=== PATIENT | male | born 1975 | race Caucasian/White ===

== ENCOUNTER 2022-03-12 12:56 | Emergency (ER) | payer BC, SELFPAY ==
--- NOTE | 2022-03-12 13:14 | ED.BACK ---
HPI - Back Pain/Injury General Chief Complaint: Back Pain/Injury Stated Complaint: back pain Time Seen by Provider: 03/12/22 13:58 Source: patient and RN notes reviewed Mode of arrival: ambulatory Limitations: no limitations History of Present Illness HPI Narrative: 46 year old male presents with concern for right flank pain. He reports symptoms started several weeks ago without injury. He reports intermittent sharp stabbing pain. He reports occasional feeling of not emptying his bladder. He denies hematuria. He denies fever, nausea or vomiting. He denies worsening pain with deep breathing or coughing. He reports pain is exacerbated occasionally when he twists a certain way. He reports he has used heat and ice, muscle rubs and ibuprofen with little relief. MD elicited complaint: back pain Related Data Allergies Allergy/AdvReac Type Severity Reaction Status Date / Time No Known Allergies Allergy Verified 03/12/22 13:36 Review of Systems Review of Systems: CONSTITUTIONAL: Denies malaise, chills, sweats, or fever. CARDIOVASCULAR: Denies chest pain, palpitations, or edema. RESPIRATORY: Denies cough or dyspnea. GASTROINTESTINAL: Denies abdominal pain, nausea, vomiting, diarrhea, loss of bowel function GENITOURINARY: Denies dysuria, hematuria, frequency, loss of bladder function. Reports right pain. Reports occasional feeling of not emptying bladder SKIN: Denies rash or itching. MUSCULOSKELETAL: Reports low back pain NEUROLOGIC: Denies numbness, weakness, or headache. All systems reviewed & are unremarkable except as noted in HPI and below PMFSH Family History Family History (Updated 05/01/16 @ 23:21 by DOCTOR UNKNOWN) Sibling Patient's sister is in good health Patient's brother is in good health Father Family history of arthritis Family history of lupus erythematosus Mother Family history of lupus erythematosus Social History Social History Smoking status: Never smoker Alcohol intake: current Comments At time of signature, agree with nursing past medical, surgical, social and family history. There is no relevant family history pertinent to the presenting complaint Exam Narrative: GENERAL: Well-appearing, well-nourished, and in no acute distress. HEAD: Normocephalic, atraumatic. EYES: PERRLA and EOMI. NECK: Supple. No lymphadenopathy. CHEST: Clear to auscultation. No respiratory distress. HEART: Regular rate and rhythm. Distal pulses palpable and equal, cap refill <3 seconds ABDOMEN: Soft, nontender, nondistended, normal active bowel sounds, no palpable or pulsatile masses. No CVA tenderness MUSCULOSKELETAL: Normal range of motion and strength in all extremities; 5/5 strength with hip flexion and extension, dorsiflexion and extension, knee flexion and extension, plantar flexion and extension. Normal sensation in dermatomal distributions with sensitivity to light touch and pain. No midline back tenderness to palpation. No paraspinal tenderness. Transfers from lying to sitting to standing. SKIN: Warm, dry, no rash. No ecchymosis, erythema, open wounds to back. NEURO: No focal deficits. Alert and oriented x3. Reflexes intact. Normal gait. PSYCH: Normal mood and affect Course Course Emergency Course: Discussed treatment options with patient, discussed limited diagnostic study [facility]. Discussed possibility for nephrolithiasis versus musculoskeletal pain. Through shared decision making it was decided to treat presumptively for possible nephrolithiasis, patient was given referral to urology and instructions to go to the emergency room symptoms worsen. Patient is aware of diagnosis, understands and agrees to treatment plan. Anticipatory guidance given. Patient agrees to follow-up as directed and is aware of reasons to seek care at the emergency department. Portions of this record may have been created with voice recognition software Level of Care: [facility] Visit Vital Signs Vital signs: Vital Si
[2022-03-12 13:25] VITALS: BP 153/78; PULSE 70; RESP 14; TEMP 36.5; O2SAT 100
== END 2022-03-12 14:20 | disposition home or self-care (01) ==
PROVIDERS: Emergency Provider Nurse Practitioner
DX: R10.9 Unspecified abdominal pain (principal)
CPT/HCPCS: 99203; G0463